=== PATIENT | female | born 1960 | race Caucasian/White ===

== ENCOUNTER 2017-10-05 13:32 | Inpatient (IN) | payer OTHER ==
[~2017-10-05] VITALS: Ht 162.6 cm; Wt 37.2 kg
[~2017-10-05 13:32] MED LIST: BUTALBITAL-ASA1 EACH PO; CHERATUSSIN AC118 ML PO; FIORICET PO; LORTAB 10-5001 EACH PO; SOMA350 MG PO; Z.0.KEFLEX500 MG PO; Z.0.VALIUM10 MG PO; [UNRECOGNIZED DRUG - OTHER] PO
[2017-10-05] MEDS ORDERED: ONDANSETRON HCL INJ 2 MG/ML VIAL IV STA (13:52)
[2017-10-05] MEDS ORDERED: SODIUM CHLORIDE 0.9% 1000ML 1,000 ML IV STA (13:52)
[2017-10-05] MEDS ORDERED: ACETAMINOPHEN 325 MG TAB PO ONE ×2 (14:00→22:30)
[2017-10-05] MEDS ORDERED: CEFTRIAXONE SOD 1 GM VIAL IV SCH (15:00)
[2017-10-05 15:01] LABS: BASOPHILS # (AUTO) 0.1 (0.0-0.1); BASOPHILS % 0.7 % (0.0-1.0); EOSINOPHILS # (AUTO) 0.1 (0.0-0.4); EOSINOPHILS % 0.6 % (0.0-6.0); HEMATOCRIT 33.7 % (34.2-44.1); HEMOGLOBIN 10.8 g/dL (12.0-16.0); LYMPHOCYTES # (AUTO) 1.7 (1.0-3.2); LYMPHOCYTES % 18.8 % (18.0-39.1); MEAN CORPUSCULAR VOLUME 93.6 fL (81-99); MONOCYTES % 10.7 % (4.4-11.3); NEUTROPHILS # (AUTO) 6.2 (2.1-6.9); NEUTROPHILS % 68.1 % (38.7-80.0); PLATELET COUNT 440 x10e3/uL (140-360); RED CELL DISTRIBUTION WIDTH 14.3 % (11.7-14.4)
[2017-10-05 15:03] LABS: BILIRUBIN,URINE 2+ (NEGATIVE); CLARITY,URINE CLEAR (CLEAR); COLOR,URINE YELLOW (YELLOW); KETONES,URINE NEGATIVE (NEGATIVE); LEUKOCYTE ESTERASE ,URINE NEGATIVE (NEGATIVE); NITRITE,URINE NEGATIVE (NEGATIVE); PROTEIN,URINE DIPSTICK 1+ (NEGATIVE); URINE UROBILINOGEN 8 mg/dL (0.2 - 1)
--- NOTE | 2017-10-05 15:05 | Diagnostic Imaging Report ---
PROCEDURE: Frontal and lateral views of the chest. COMPARISON: None. INDICATIONS: COUGH, WEAKNESS, SCARRING OF LUNG FINDINGS: Lines/tubes: None. Lungs: The lungs are well inflated. Right upper lobe cavitation with adjacent pleural thickening and scarring. Air-fluid levels are present within the cavitary lesions are noted on the lateral view. Pleura: There is pleural scarring. No pleural effusion or pneumothorax. Heart and mediastinum: The heart and the mediastinum are normal. Bones: No acute bony abnormality. IMPRESSION: Right upper lobe cavitary lesion with air-fluid levels for which reactivation TB would be the primary diagnosis to exclude. Findings discussed with Dr. Grey Knight on 10/05/2017 at 1505 hrs. Dictated by: Parminder Nichols M.D. on 10/05/2017 at 15:08 Electronically approved by: Parminder Nichols M.D. on 10/05/2017 at 15:08
[2017-10-05 15:07] LABS: INR 1.21; PROTHROMBIN TIME 14.4 seconds (11.9-14.5)
[2017-10-05 15:17] LABS: ALANINE AMINOTRANSFERASE 16 IU/L (0-55); ALBUMIN 2.2 g/dL (3.5-5.0); ALBUMIN/GLOBULIN RATIO 0.4 (0.8-2.0); ALKALINE PHOSPHATASE 110 IU/L (40-150); BLOOD UREA NITROGEN 16 mg/dL (7-26); BUN/CREATININE RATIO 23 (6-25); CALCIUM 9.1 mg/dL (8.4-10.2); CARBON DIOXIDE 34 mmol/L (22-29); CHLORIDE 94 mmol/L (98-107); CREATINE KINASE 113 IU/L (29-168); EST GLOMERULAR FILTRATION RATE > 60 ML/MIN (60-); GLUCOSE 100 mg/dL (74-118); LIPASE 15 U/L (8-78); MAGNESIUM 1.8 MG/DL (1.3-2.1); SODIUM 141 mmol/L (136-145)
[2017-10-05 15:23] LABS: EPITHELIAL CELLS,URINE MANY /LPF
[2017-10-05 15:25] LABS: B-TYPE NATRIURETIC PEPTIDE2 104.9 pg/mL (0-100)
[2017-10-05 15:27] LABS: BACTERIA,URINE FEW /HPF; RBC,URINE 0-5 /HPF (0-5); WBC,URINE (MAN) 0-5 /HPF (0-5)
[2017-10-05 15:29] LABS: TRANSITIONAL EPI CELLS,URINE FEW
[2017-10-05 15:36] LABS: THYROID STIMULATING HORMONE 1.633 uIU/mL (0.350-4.940)
--- NOTE | 2017-10-05 17:46 | Diagnostic Imaging Report ---
PROCEDURE: CT scan of the chest WITH intravenous contrast, using standard protocol. TECHNIQUE: The chest was scanned utilizing a multidetector helical scanner from the lung apex through the level of the adrenal glands after the IV administration of 100 cc of Isovue 370. Coronal and sagittal multiplanar reformations were obtained. COMPARISON: Same day chest radiograph INDICATIONS: COUGH TB PERCAUTION FINDINGS: Lines/tubes: None. Lungs and Airways: Diffuse emphysematous changes. Upper lobe volume loss with superior retraction of the major fissure. The right upper lobe is replaced by multiple cavities which contain air-fluid levels that appear surrounded by the enhancing remaining lung parenchyma. A small amount of layering fluid is present within the right mainstem bronchus. Pleura: The pleural spaces are clear. Heart and mediastinum: The thyroid gland is normal. Borderline enlarged nonnecrotic right hilar and mediastinal lymph nodes, likely reactive. The heart and pericardium are within normal limits. Soft tissues: Normal. Abdomen: Limited contrast-enhanced views of the upper abdomen show no abnormality within the visualized liver, spleen, pancreas, or kidneys. The adrenal glands are normal. Bones: The visualized bony thorax is within normal limits. IMPRESSION: 1. Numerous cavitary lesions throughout the right upper lobe which contain multiple air fluid levels. Reactivation TB remains the primary diagnosis to exclude. Other infectious or neoplastic etiologies remain in the differential. 2. Diffuse emphysematous changes. Dictated by: Parminder Nichols M.D. on 10/05/2017 at 17:49 Electronically approved by: Parminder Nichols M.D. on 10/05/2017 at 17:49
[2017-10-05] MEDS ORDERED: SODIUM CHLORIDE 0.9% 500ML 500 ML ONE (18:21)
[2017-10-05] MEDS ORDERED: ACETAMINOPHEN 325 MG TAB PO SCH (19:00)
[2017-10-05] MEDS ORDERED: ASPIRIN 81 MG CHEW TAB PO ONE (19:00)
[2017-10-05] MEDS ORDERED: SODIUM CHLORIDE 0.9% 1000ML 1,000 ML IV SCH (19:00)
[2017-10-05] MEDS ORDERED: IOPAMIDOL 370 MG/ML 200 ML INFUS..BTL INJ ONE (19:44)
[2017-10-05] MEDS ORDERED: SODIUM CHLORIDE 0.9% 50ML 50 ML ONE (19:44)
[2017-10-05] MEDS: VANCOMYCIN 1GM/NS 250 ML 250 ML IV SCH (20:27)
[2017-10-05] MEDS: CEFEPIME HCL 1 GM VIAL IV SCH (20:27)
[2017-10-05] MEDS ORDERED: PIPER-TAZ 3.375 GM 50 ML IV SCH (22:00)
[2017-10-06] LABS: CREATINE KINASE 100 IU/L (29-168)
[2017-10-06 05:53] LABS: BASOPHILS # (AUTO) 0.1 (0.0-0.1); BASOPHILS % 0.6 % (0.0-1.0); EOSINOPHILS # (AUTO) 0.1 (0.0-0.4); EOSINOPHILS % 1.5 % (0.0-6.0); HEMATOCRIT 31.5 % (34.2-44.1); LYMPHOCYTES # (AUTO) 1.4 (1.0-3.2); LYMPHOCYTES % 17.3 % (18.0-39.1); MEAN CORPUSCULAR HEMOGLOBIN 30.8 pg (28-32); MEAN CORPUSCULAR HGB CONC 31.7 g/dL (31-35); MEAN CORPUSCULAR VOLUME 96.9 fL (81-99); MONOCYTES # (AUTO) 0.9 (0.2-0.8); MONOCYTES % 11.5 % (4.4-11.3); NEUTROPHILS # (AUTO) 5.5 (2.1-6.9); NEUTROPHILS % 68.1 % (38.7-80.0); PLATELET COUNT 420 x10e3/uL (140-360); RED BLOOD COUNT 3.25 x10e6/uL (3.6-5.1); RED CELL DISTRIBUTION WIDTH 14.5 % (11.7-14.4)
[2017-10-06 06:23] LABS: ALANINE AMINOTRANSFERASE 14 IU/L (0-55); ALBUMIN 1.9 g/dL (3.5-5.0); ALBUMIN/GLOBULIN RATIO 0.4 (0.8-2.0); ALKALINE PHOSPHATASE 95 IU/L (40-150); ANION GAP 12.1 mmol/L (8-16); BLOOD UREA NITROGEN 12 mg/dL (7-26); BUN/CREATININE RATIO 19 (6-25); CALCIUM 8.4 mg/dL (8.4-10.2); CARBON DIOXIDE 30 mmol/L (22-29); CHLORIDE 104 mmol/L (98-107); CREATINE KINASE 80 IU/L (29-168); CREATININE, SERUM 0.63 mg/dL (0.57-1.11); EST GLOMERULAR FILTRATION RATE > 60 ML/MIN (60-); GLUCOSE 110 mg/dL (74-118); POTASSIUM 3.1 mmol/L (3.5-5.1); SODIUM 143 mmol/L (136-145)
[2017-10-06] MEDS: VANCOMYCIN 1GM/NS 250 ML 250 ML IV SCH (07:33)
[2017-10-06] MEDS ORDERED: POTASSIUM CHLORIDE 20 MEQ TAB CR PO STA (10:29)
[2017-10-06] MEDS: CEFEPIME HCL 1 GM VIAL IV SCH (10:33)
[2017-10-06] MEDS ORDERED: ALBUTEROL/IPRATROPIUM 3 ML NEB NEB SCH (11:30)
[2017-10-06 12:00] LABS: CREATINE KINASE 89 IU/L (29-168)
--- NOTE | 2017-10-06 12:38 | Consultation ---
DATE OF CONSULTATION: REASON FOR CONSULTATION: Abnormal CT chest. CHIEF COMPLAINT: Shortness of breath. HPI: Ms. Ordoñez is a 56-year-old female. There is no past record here. She is able to give me some history. However, she has episodes of confusion. She presented to the emergency room with worsening shortness of breath, weight loss, decreased appetite. She has been coughing up green-yellow phlegm and also coughing up some blood as well. She denies any nausea, vomiting or diarrhea. She has been bringing up copious phlegm as well. She reported to the ER physician that she has a history of Mycobacterium avium infection in the past which was a few years ago. Did not tell me that. She is a smoker for 35+ years. REVIEW OF SYSTEMS GENERAL: Reports fever. She had noted fever at home. She has low grade fever here. Denies any chills. HEAD: Denies any head trauma. ENT: Denies any earache. CVS: Denies any chest pain. RESPIRATORY: Shortness of breath. GI: Denies any nausea or vomiting. MUSCULOSKELETAL: Denies any arthralgias or myalgias. NEURO: Denies any focal weakness. OTHER: The rest of the review systems are negative except as in HPI. PAST MEDICAL HISTORY: Chronic back pain, fibromyalgia. PAST SURGICAL HISTORY: Shoulder surgery, back surgeries. FAMILY AND SOCIAL HISTORY: She is a smoker. She lives by herself. She does not drink. PHYSICAL EXAMINATION VITAL SIGNS: Temperature 98.1, pulse of 71, blood pressure 97/43, respiratory rate 18 to 20, O2 sat 82%. HEENT: Head is atraumatic, normocephalic. NECK: Supple. CHEST: She is cachectic and emaciated. Markedly reduced air entry bilaterally. HEART: S1, S2 audible. ABDOMEN: Soft and nontender. EXTREMITIES: No clubbing, cyanosis or edema. NEURO: Awake, alert. No focal neurologic deficit. LABS: White count of 8000, hemoglobin 10.0, platelets 420. Chemistry: Sodium 143, potassium 3.1, chloride 104, BUN 12, creatinine 0.63. One set of sputum culture is pending. CT of the chest: I reviewed the images. It is showing a large cavitary lesion in the right upper lobe. Multiple air fluid levels and emphysema. ASSESSMENT AND PLAN: Ms. Ordoñez is a 56-year-old female. She presented with worsening shortness of breath, cough, weight loss, hemoptysis, high likelihood of tuberculosis. PLAN/RECOMMENDATIONS 1. HIV testing. ID consultation. 2. Sputum for AFB. 3. Nebulizer treatment. 4. At this point, I will start the patient on IV Zosyn and vancomycin. Will discuss with infectious disease if we can empirically treat for TB. Sputum for AFB, Gram stain and culture. 5. Continue the patient on oxygen to keep the O2 sat more than or equal to 92%. Job#: [id number]
[2017-10-06 13:16] LABS: HIV 1&2 AB SCREEN NON-REACTIVE (NONREACTIVE)
[2017-10-06] MEDS ORDERED: POTASSIUM CHLORIDE 20 MEQ TAB CR PO ONE (13:37)
[2017-10-06] MEDS ORDERED: LORAZEPAM INJ 2 MG/ML VIAL IV NR (14:15)
[2017-10-06 14:41] VITALS: BP 93/62
--- NOTE | 2017-10-06 18:51 | History and Physical ---
CHIEF COMPLAINT: Shortness of breath. HISTORY OF PRESENT ILLNESS: Patient is a 56-year-old female, a poor historian. The patient came into the hospital with decrease in blood pressure, increasing shortness of breath and also having progressive weight loss, decrease in appetite. The patient has increasing cough productive with some hemoptysis as well. Patient has significantly increasing coughing for the past few days. The patient came to the hospital for further evaluation and treatment. Patient is a smoker for greater than 30 to 40 years. PAST MEDICAL HISTORY: Fibromyalgia and chronic pain. PAST SURGICAL HISTORY: Shoulder surgery and back surgery. SOCIAL HISTORY: Patient lives by herself. She does not drink alcohol. However, she is a heavy smoker. ALLERGIES: TO NO KNOWN ALLERGY. HOME MEDICATIONS: List reviewed. REVIEW OF SYSTEMS: Increasing shortness of breath, productive cough. PHYSICAL EXAMINATION: VITAL SIGNS: Temperature was 101. Blood pressure 89/62. Pulse rate is 113. Respiration is 22. GENERAL: The patient seems weak and progressive weight loss. HEENT: Normocephalic, atraumatic, anicteric. NECK: Supple grossly. PULMONARY: Diminished breath sounds bilaterally with coarses. CARDIOVASCULAR: Tachycardia. ABDOMEN: Soft, no distention. EXTREMITIES: No cyanosis or edema. NEUROLOGIC: No focal deficit. LABORATORY: Sodium is 141, potassium 3, chloride 94, bicarb is 34, BUN was 15, creatinine 0.7. Glucose is 100. WBC is 9.0. Hemoglobin 10.8. Hematocrit 37.7. Platelet is 440. IMAGING: CT of the chest showed that the patient has numerous cavitary lesions throughout the right upper lobe which contained multiple air-fluid levels. emphysematous changes. IMPRESSION: 1. Sepsis with shock. 2. Possible active tuberculosis infection versus bacterial infection with abscess. 3. Severe emphysema. 4. Medical debility. PLAN: Continue with antibiotics. Consultation with Dr. Lau and Dr. Nance. Patient will be admitted for isolation. Job#: [id number] JOSE LUIS
--- NOTE | 2017-10-06 18:56 | Discharge Summary ---
PRIMARY CARE PHYSICIAN: Dr. Og Lee. FINAL DIAGNOSES: 1. Transferring to [facility] for higher level of care. 2. Severe sepsis with shock. 3. Possible active tuberculosis with pulmonary abscess versus bacterial abscess with pulmonary decompensation. 4. Severe emphysema. SUMMARY: A 56-year-old female now transferred to the [facility]. The patient was quite ill. She has septic shock. Pulmonary problem with respiratory failure. Patient is transferred today from the emergency room. Job#: [id number] EV
[2017-10-07] MEDS ORDERED: PYRAZINAMIDE 500 MG TAB PO SCH (09:00)
[2017-10-07] MEDS ORDERED: RIFAMPIN 300 MG CAP PO SCH (09:00)
[2017-10-07] MEDS ORDERED: ETHAMBUTOL HCL 400 MG TAB PO SCH (09:00)
[2017-10-07] MEDS ORDERED: ISONIAZID 300 MG TAB PO SCH (09:00)
[2017-10-07] MEDS ORDERED: PYRIDOXINE HCL 50 MG TAB PO SCH (09:00)
--- NOTE | 2017-10-11 11:18 | Consultation ---
DATE OF CONSULTATION: REASON FOR CONSULTATION: Pneumonia. HISTORY OF PRESENT ILLNESS: Patient is a 56-year-old white female comes in, not clear to me a few days or a few weeks, she is really weak getting the history. She came last night to the emergency room and in the emergency room she felt like she has been sick for 2 weeks with cough, shortness of breath, feeling really bad. Apparently she was not taking any medication. She just finally came to the hospital where she was evaluated. I had discussed the case last night with ER physician, her chest x-ray finding and her laboratory data finding. Recommended starting vancomycin and Zosyn. The patient, when I saw her today, she is just feeling weak in general, not feeling well/poor, cough, fever, chills, nausea, pain all over. PAST MEDICAL HISTORY: Chronic pain, anxiety, fibromyalgia. PAST SURGICAL HISTORY: Back surgery, shoulder surgery. ALLERGIES: NKA. SOCIAL HISTORY: She denies smoking, drug abuse, alcohol abuse. FAMILY HISTORY: Not contributory. REVIEW OF SYSTEMS GENERAL: She is just not feeling well. HEENT: There is no headache, visual changes, hearing changes. GI: Some nausea but no vomiting. : No urgency or frequency. SKIN: There is no rash. LABORATORY DATA: White count is 9.01, hemoglobin 10.8, hematocrit 33, platelets of 440. Her HIV antibody and antigen is still pending. Sodium 143, potassium 3.1, creatinine 12. Liver enzymes within normal limit. The patient had a chest CT that showed numerous cavity lesions throughout the upper lobe. PHYSICAL EXAMINATION GENERAL: She is alert, very weak. HEENT: Not icteric. NECK: Supple. CHEST: Few rhonchi, coarse. HEART: S1, S2. ABDOMEN: Soft. IMPRESSION: Pneumonia. While this could be sepsis with pneumonia, concerned about Staphylococcus aureus bacteremia, etcetera. I am also concerned about tuberculosis. Recommended do HIV, was still pending. Sputum for AFB and PCR which is still pending. I an going to start her on TB treatment at the present time. She just looks so cachectic. Also will need nutritional support. Will start her on 4-drug treatment, INH, rifampin, PZA, ethambutol plus B6 in addition to vancomycin and Zosyn. Will follow. Job#: [id number] DG
== END 2017-10-06 15:44 | disposition short-term general hospital (02) | DRG 871 ==
LOC: ER 13:32 → ERHOLD 20:11
PROVIDERS: ADMIT Internal Medicine; ATTEND Internal Medicine
DX: A41.9 Sepsis, unspecified organism (principal); R65.21 Severe sepsis with septic shock; A19.9 Miliary tuberculosis, unspecified; J96.90 Respiratory failure, unspecified, unspecified whether with hypoxia or hypercapnia; J85.1 Abscess of lung with pneumonia; R04.2 Hemoptysis; R64 Cachexia; Z68.1 Body mass index [BMI] 19.9 or less, adult; J43.9 Emphysema, unspecified; F17.200 Nicotine dependence, unspecified, uncomplicated; G89.29 Other chronic pain; F41.9 Anxiety disorder, unspecified; R53.81 Other malaise; M79.7 Fibromyalgia
CPT/HCPCS: 36415; 71046; 71260; 80053; 81001; 82550; 82553; 83605; 83690; 83735; 83880; 84443; 84484; 85025; 85610; 85730; 87040; 87086; 87116; 87206; 87390; 93005; 94640; 99285; G0433; G0435; J0692; J0696; J2060; J2405; J3370; J7030; J7040; Q9967